=== PATIENT | female | born 1955 | race Caucasian/White ===

== ENCOUNTER 2022-11-18 10:22 | Emergency (ER) | payer MEDICARE, BC, SELFPAY ==
[2022-11-18 10:26] VITALS: BP 147/65; PULSE 78; RESP 18; TEMP 36.7; O2SAT 99
--- NOTE | 2022-11-18 10:30 | DI.RAD_ITS ---
Exam(s) XR RIBS LT W PA LAT CHEST CLINICAL HISTORY Fall, left rib pain. COMPARISON: No exams were available for comparison TECHNIQUE:: PA and lateral views of the chest and four views of the left ribs were performed. FINDINGS: LUNGS: Clear. No pleural abnormality seen. HEART: Normal. MEDIASTINUM: Normal. BONES: No displaced rib fracture is seen. No compression fractures are seen in the thoracic spine. No bony destructive lesion is seen. OTHER FINDINGS: Surgical clips right breast. IMPRESSION: 1. Unremarkable radiographic appearance of the left ribs. 2. No acute pulmonary findings.
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
== END 2022-11-18 11:56 | disposition home or self-care (01) ==
PROVIDERS: Emergency Provider Registered Nurse Emergency
DX: M79.89 Other specified soft tissue disorders (principal); R07.81 Pleurodynia; S20.212A Contusion of left front wall of thorax, initial encounter; V19.9XXA Pedal cyclist (driver) (passenger) injured in unspecified traffic accident, initial encounter; Y93.55 Activity, bike riding; Y92.410 Unspecified street and highway as the place of occurrence of the external cause; S70.12XA Contusion of left thigh, initial encounter
CPT/HCPCS: 99283; 71046; 71100